=== PATIENT | male | born 1970 | race Caucasian/White ===

== ENCOUNTER 2020-11-12 08:58 | Emergency (ER) | payer OTHER ==
[2020-11-12 09:23] LABS: BASOPHIL 0.9 % (0-2); EOSINOPHIL 5.5 % (0-5); HCT 42.5 % (42.0-52.0); HGB 14.5 g/dl (13.2-18.0); LYMPHOCYTE 36.5 % (15-48); MCH 28.6 pg (25.0-31.0); MCHC 34.1 g/dL (32.0-36.0); MCV 83.8 fL (78.0-100.0); MONOCYTE 7.5 % (0-12); MPV 9.2 fL (6.0-9.5); NEUTROPHIL 49.4 % (41-80); NRBC 0; PLT 256 K/uL (150-400); RBC 5.07 M/uL (4.70-6.00); WBC 6.4 K/uL (4.0-10.5)
[2020-11-12 09:32] LABS: INR 1.04 (0.9-1.2); PTT 34.8 SECONDS (24.4-34.7)
[2020-11-12 09:53] LABS: ALBUMIN 4.2 g/dL (3.4-5.0); BILIRUBIN - TOTAL 0.2 mg/dL (0.2-1.0); BUN/CREAT RATIO (CALC) 16.9 RATIO; CREATININE 0.83 mg/dL (0.67-1.17); GLOBULIN (CALCULATION) 3.4 g/dL; POTASSIUM 4.1 mmol/L (3.5-5.1); TOTAL PROTEIN 7.6 g/dL (6.4-8.2)
== END 2020-11-12 10:47 | disposition home or self-care (01) ==
LOC: FER 08:58
PROVIDERS: Internal Medicine
DX: R07.89 Other chest pain (principal); I10 Essential (primary) hypertension
CPT/HCPCS: 36415; 71045; 80053; 84484; 85025; 85610; 85730; 93005